=== PATIENT | male | born 1945 | race Caucasian/White ===

== ENCOUNTER 2016-09-19 14:52 | Inpatient (IN) | payer SELFPAY ==
[~2016-09-19] VITALS: Ht 160 cm; Wt 57.2 kg
[2016-09-19] MEDS ORDERED: SODIUM CHLORIDE 0.9% 1,000 ML IV ONE (16:29)
[2016-09-19 17:31] LABS: CLARITY URINE CLEAR (CLEAR); COLOR URINE YELLOW (YELLOW); GLUCOSE URINE NEGATIVE (NEGATIVE); KETONES URINE NEGATIVE (NEGATIVE); LEUKOCYTE ESTERASE URINE TRACE (NEGATIVE); NITRITE URINE POSITIVE (NEGATIVE); OCCULT BLOOD URINE 2+ (NEGATIVE); PROTEIN URINE 1+ (NEGATIVE); SPECIFIC GRAVITY URINE 1.024 (1.005-1.030); UROBILINOGEN URINE 0.2 E.U./dL (0.2-1.0)
[2016-09-19 17:38] LABS: BASOPHILS % 0.3 % (0.0-2.0); EOSINOPHILS % 0.8 % (0.0-5.0); HEMATOCRIT. 40.7 % (42.0-52.0); HEMOGLOBIN. 13.4 g/dL (14.0-18.0); LYMPHOCYTES % 22.9 % (20.0-50.0); MEAN CORPUSCULAR HEMOGLOBIN 28.5 pg (28.0-32.0); MEAN CORPUSCULAR VOLUME 86.9 fL (80.0-94.0); MEAN PLATELET VOLUME 8.2 fl (7.4-10.4); MONOCYTES % 7.7 % (2.0-8.0); NEUTROPHILS % 68.3 % (40.0-76.0); PLATELET 249 x1000/uL (130-400); RED BLOOD CELL COUNT 4.69 mill/uL (4.7-6.1); RED CELL DISTRIBUTION WIDTH 14.3 % (11.6-14.6)
[2016-09-19 17:39] LABS: CHLORIDE 111 mEq/L (98-107)
[2016-09-19 17:43] LABS: CARBON DIOXIDE 24 mEq/L (21-32)
[2016-09-19 17:46] LABS: ETHANOL BLOOD 259 mg/dL
[2016-09-19 17:47] LABS: *AMPHETAMINES SCREEN URINE NEGATIVE (NEGATIVE); *BARBITURATES SCREEN URINE NEGATIVE (NEGATIVE); *BENZODIAZEPINES SCREEN URINE NEGATIVE (NEGATIVE); *COCAINE SCREEN URINE NEGATIVE (NEGATIVE); CANNABINOID URINE SCREEN NEGATIVE (NEGATIVE); METHADONE URINE SCREEN NEGATIVE (NEGATIVE); OPIATES URINE SCREEN NEGATIVE (NEGATIVE); PHENCYCLIDINE URINE SCREEN NEGATIVE (NEGATIVE)
[2016-09-19] MEDS ORDERED: SODIUM CHLORIDE 0.9% 1000ML BAG (SEPSIS BOLUS) IV ONE (22:15)
[2016-09-19] MEDS ORDERED: CEFTRIAXONE 1 G PREMIX 50 ML IV ONE (22:15)
[2016-09-19] MEDS ORDERED: AZITHROMYCIN 500 MG in DEXT 5% WATER 250 ML IV ONE (22:15)
[2016-09-19] MEDS ORDERED: MORPHINE SULFATE 4 MG/ML CPJ (NOT FOR IM USE) IV PRN (23:30)
[2016-09-19] MEDS ORDERED: LORAZEPAM 2MG/ML CPJ IV PRN (23:30)
[2016-09-19] MEDS ORDERED: ONDANSETRON HCL 4MG/2ML VIAL IV PRN (23:30)
[2016-09-19] MEDS ORDERED: GUAIFENESIN 200MG/10ML SUGAR FREE UDC PO PRN (23:30)
[2016-09-19] MEDS ORDERED: MAGNESIUM/ALUMINUM HYDROXIDE/SIMETHICONE 30ML UDC PO PRN (23:30)
[2016-09-19] MEDS ORDERED: DOCUSATE SODIUM 100MG CAPSULE PO PRN (23:30)
[2016-09-19] MEDS ORDERED: ACETAMINOPHEN 325MG TABLET PO PRN (23:30)
[2016-09-19] MEDS ORDERED: CLONIDINE 0.1MG TABLET PO PRN (23:30)
[2016-09-19] MEDS ORDERED: IPRATROPIUM/ALBUTEROL 0.5-3(2.5)MG/3ML NEB INH PRN (23:30)
[2016-09-19] MEDS ORDERED: DIPHENHYDRAMINE 50MG/ML VIAL IV PRN (23:30)
[2016-09-19] MEDS ORDERED: NA PHOS,M-B/NA PHOS,DI-BA ENEMA 118ML PR PRN (23:30)
[2016-09-19] MEDS ORDERED: HYDROCODONE/ACETAMINOPHEN 5/325MG TABLET PO PRN (23:30)
[2016-09-20 00:33] LABS: CHLORIDE 110 mEq/L (98-107)
[2016-09-20 00:41] LABS: CARBON DIOXIDE 21 mEq/L (21-32)
[2016-09-20 02:10] VITALS: BP 134/92
[2016-09-20 04:00] VITALS: BP 149/89
[2016-09-20] MEDS: MVI, ADULT NO.1 10 ML, FOLIC ACID 1 MG, THIAMINE HCL 100 MG in SODIUM CHLORIDE 0.9% 1,0... IV NR ×8 (04:50→13:00)
[2016-09-20 05:57] LABS: BASOPHILS % 0.3 % (0.0-2.0); HEMOGLOBIN. 12.3 g/dL (14.0-18.0); LYMPHOCYTES % 14.3 % (20.0-50.0); MEAN CORPUSCULAR HEMOGLOBIN 28.5 pg (28.0-32.0); MEAN PLATELET VOLUME 8.3 fl (7.4-10.4); MONOCYTES % 6.9 % (2.0-8.0); NEUTROPHILS % 78.5 % (40.0-76.0); PLATELET 227 x1000/uL (130-400); RED CELL DISTRIBUTION WIDTH 14.1 % (11.6-14.6)
[2016-09-20 07:06] LABS: CARBON DIOXIDE 23 mEq/L (21-32); CHLORIDE 107 mEq/L (98-107)
[2016-09-20 07:07] LABS: LDL CHOLESTEROL 98 mg/dL (5-100); TROPONIN I < 0.02 ng/mL (0.00-0.04)
[2016-09-20 07:09] LABS: HDL CHOLESTEROL 56 mg/dL (40-59)
[2016-09-20 07:27] VITALS: BP 147/83
[2016-09-20] MEDS: ASPIRIN 81MG EC TABLET PO SCH (09:17)
[2016-09-20] MEDS: ENOXAPARIN 40MG/0.4ML SYR SUBCUT SCH (09:19)
[2016-09-20 12:00] VITALS: BP 135/83
[2016-09-20 16:00] VITALS: BP 129/82
[2016-09-20 20:00] VITALS: BP 142/85
[2016-09-21 00:05] VITALS: BP 146/70
[2016-09-21 04:00] VITALS: BP 139/87
[2016-09-21 08:00] VITALS: BP 145/76
[2016-09-21] MEDS: ASPIRIN 81MG EC TABLET PO SCH (08:17)
[2016-09-21] MEDS: ENOXAPARIN 40MG/0.4ML SYR SUBCUT SCH (08:18)
[2016-09-21 10:31] VITALS: BP 145/76
== END 2016-09-21 11:00 | disposition home or self-care (01) | DRG 775 ==
LOC: EDBD 15:52 → ER 15:52 → 7WST 22:47 → EDBEDREQ 22:55 → EDBEDREQSVC 22:55 → ENRESERV 23:49
PROVIDERS: ADMIT Internal Medicine; ATTEND Internal Medicine
DX: F10.229 Alcohol dependence with intoxication, unspecified (principal); R91.8 Other nonspecific abnormal finding of lung field; E87.8 Other disorders of electrolyte and fluid balance, not elsewhere classified; I10 Essential (primary) hypertension; Z87.891 Personal history of nicotine dependence; Z89.9 Acquired absence of limb, unspecified
CPT/HCPCS: 36415; 71020; 80048; 80053; 80061; 80305; 81001; 82040; 83605; 84450; 84460; 84484; 85025; 87040; 87070; 87077; 87186; 87205; 93005; 96365; 96367; 96375; 99285; G0482; J0456; J0696; J1650; J3411; J3490; J7030; J7040; J7060